=== PATIENT | female | born 1965 | race Caucasian/White ===

== ENCOUNTER 2022-09-05 16:15 | Emergency (ER) | payer OTHER ==
[~2022-09-05] VITALS: Ht 162.6 cm; Wt 109.1 kg
[2022-09-05 19:02] VITALS: BP 129/73
== END 2022-09-05 19:06 | disposition home or self-care (01) ==
LOC: M ED 16:15
DX: S06.0X0A Concussion without loss of consciousness, initial encounter (principal); S50.01XA Contusion of right elbow, initial encounter; S93.401A Sprain of unspecified ligament of right ankle, initial encounter; W01.0XXA Fall on same level from slipping, tripping and stumbling without subsequent striking against object, initial encounter; Y92.099 Unspecified place in other non-institutional residence as the place of occurrence of the external cause; Z88.8 Allergy status to other drugs, medicaments and biological substances